=== PATIENT | male | born 1965 | race Caucasian/White ===

== ENCOUNTER 2022-05-15 12:17 | Outpatient (CLI) | payer MEDICAID, SELFPAY ==
[2022-05-15 12:50] LABS: Albumin* 4.4 g/dL (3.3-5.0); Chloride* 103 mmol/L (96-114)
[2022-05-15 12:51] LABS: Potassium* 4.4 mmol/L (3.6-5.1)
[2022-05-15 12:53] LABS: Alkaline Phosphatase* 66 U/L (40-150); Aspartate Amino Transferase* 25 U/L (12-35); Bilirubin Total* 0.4 mg/dL (0.1-1.5); Blood Urea Nitrogen* 16 mg/dL (7-30); Carbon Dioxide* 28 mmol/L (20-32); Cholesterol* 221 mg/dL (90-199); Creatinine* 0.8 mg/dL (0.5-1.5); Estimated Glomerular Filt Rate 103.22; Glucose* 105 mg/dL (60-115)
[2022-05-15 12:54] LABS: Alanine Aminotransferase* 19 U/L (4-50); Calcium* 9.1 mg/dL (8.4-10.6); HDL Cholesterol* 34 mg/dL (>=40)
[2022-05-15 13:02] LABS: LDL Cholesterol Calculated 55 mg/dL (<100); Triglycerides* 661 mg/dL (40-149)
[2022-05-15 13:24] LABS: PSA Screen* 1.03 ng/mL (0.10-4.00)
[2022-05-15 13:42] LABS: Sodium* 139 mmol/L (135-149)
== END 2022-05-15 12:18 | disposition home or self-care (01) ==
PROVIDERS: PCP Family Medicine; Visit Provider Family Medicine
DX: E78.5 Hyperlipidemia, unspecified (principal); Z12.5 Encounter for screening for malignant neoplasm of prostate
CPT/HCPCS: 80053; 80061; 84153

== ENCOUNTER 2022-06-03 20:57 | Outpatient (CLI) | payer MEDICAID, SELFPAY ==
--- NOTE | 2022-06-09 12:17 | W.PM.SLEEP ---
Sleep Study Details Details Interpreting Provider: Ace Casarez MD Date of Sleep Study: 06/03/22 Sleep Study Details: STUDY TYPE:? Hospital polysomnogram ? BMI:? 24.6 ORDERING PROVIDER:? Robert INDICATION:? Concerns about sleep apnea ? SLEEP SUMMARY:? Sleep time 3:32 a.m., efficiency 70.4, latency 60.5, arousal index 28.4. RESPIRATORY SUMMARY:? Mean oxygen awake 93 asleep 92 minimum 88, 0.2 minutes oxygen between 80 and 88%. AHI is 1.6, RDI 11.6, REM AHI 4.6. Supine AHI 1.8 supine RDI 15.3 supine REM AHI 6.9 Nonsupine AHI 1.3, nonsupine RDI 6.2 PERIODIC LIMB MOVEMENTS OF SLEEP:? 0 CARDIAC:? Awake 46, asleep 44. No arrhythmias noted IMPRESSION:? Mild obstructive sleep apnea with an RDI of 11.6. Overall AHI is within normal limits at 1.6. There was supine position dependency. RECOMMENDATION: When treatment options could consist of AutoSet CPAP, dental appliance and/or airway expansion surgery.
--- NOTE | 2022-06-16 12:50 | W.PM.SLEEP ---
Sleep Study Details Details Interpreting Provider: Ace Casarez MD Date of Sleep Study: 06/03/22 Sleep Study Details: STUDY TYPE:? Hospital polysomnogram ? BMI:? 24.6 ORDERING PROVIDER:? Robert INDICATION:? Concerns about sleep apnea ? SLEEP SUMMARY:? Sleep time 3:32 a.m., efficiency 70.4, latency 60.5. Arousal index 28 point RESPIRATORY SUMMARY:? Mean oxygen awake 93, asleep 92, low oxygen 88, 0.2 minutes oxygen between 80 and 88%. AHI 1.6, RDI 11.6 supine REM AHI 6.9 PERIODIC LIMB MOVEMENTS OF SLEEP:? None CARDIAC:? Awake 46 asleep 44. No arrhythmias noted IMPRESSION:? Mild obstructive sleep apnea. While the AHI is within normal limits at 1.6, the RDI is elevated to 11.6. This was worse in the supine position. There was also supine REM mild obstructive apnea with a supine REM AHI of 6.9 RECOMMENDATION: If the patient is symptomatic, could consider positional therapy, AutoSet CPAP at a pressure of 4-15, dental appliance and/or airway expansion surgery.
== END 2022-06-03 20:58 | disposition home or self-care (01) ==
LOC: SLEEP 20:58
PROVIDERS: PCP Family Medicine; Visit Provider Otolaryngology
DX: G47.33 Obstructive sleep apnea (adult) (pediatric) (principal)
CPT/HCPCS: 95810

== ENCOUNTER 2022-07-31 08:42 | Day surgery (SDC) | payer MEDICAID, SELFPAY ==
[2022-07-31] VITALS (15 sets, daily range): BP systolic 123–191; BP diastolic 77–101; PULSE 42–68; RESP 16; TEMP 36.1–36.6; O2SAT 95–100; BMI 23.8
[2022-07-31] MEDS: LACTATED RINGERS 1000 ML 1,000 ML 100 ML IV (09:15)
[2022-07-31] MEDS: SODIUM CHLORIDE 0.9 % (FLUSH) 10 ML SYRINGE IVF (09:18)
[2022-07-31] MEDS: ETHYL CHLORIDE 1 APPLICATION 1 APPLIC TOPICAL (09:18)
[2022-07-31] MEDS: OXYMETAZOLINE 0.05% NASAL SPRAY 2 SPRAY NOSTRIL-B (09:49)
[2022-07-31] MEDS: LACTATED RINGERS 1000 ML 1,000 ML 35 ML IV (10:00)
[2022-07-31] MEDS: COCAINE HCL 4 % 4 ML SOLUTION NOSTRIL-B (10:10)
[2022-07-31] MEDS: BUPIVACAINE 0.5%/EPINEPHRINE 0.9 MG (30.9 ML) INJECTION (10:15)
[2022-07-31] MEDS: AYR SALINE NASAL GEL 1 APPLIC NOSTRIL-B (10:25)
[2022-07-31] MEDS: MUPIROCIN 1 GM PACKET 1 APPLIC TOPICAL (10:36)
--- NOTE | 2022-07-31 10:54 | W.PM.ENTPROC ---
Procedure Note Date of procedure: 07/31/22 Procedure: Preoperative diagnosis large nasopharyngeal polyp, pansinusitis, mild nasal septal deviation, inferior turbinate hypertrophy, nasal obstruction Postoperative diagnosis same plus additional right nasal polyp at middle meatus new line procedure endoscopic bilateral nasal polypectomy with removal of large nasopharyngeal polyp on the left side and the right-sided smaller polyp., submucous partial resection inferior turbinates Under general endotracheal anesthesia patient was prepped and draped in usual fashion the nose injected and decongested. The McIvor mouth gag was inserted the tongue retracted forward. A red rubber catheter was placed in the right nostril and pulled out through the mouth to retract the palate. A large polyp with visible occluding essentially the entire nasopharynx. I was unable to easily reach it through the nasopharynx so I went in transnasally and relocated the septum to be midline with a nasal speculum. I was able improves the polyp down into the nasopharynx or could easily grasped with an up-biting ethmoid forceps on indirect visualization with a laryngeal mirror. The 0 degree endoscope was also available for use throughout the procedure. The polyp was removed in total. And sent to pathology. The remainder of the nose was inspected. The right polyp was noted in the middle meatus is about 1 cm in size this was also removed. A stab incision was made in the anterior head of the left inferior turbinate a tunnel created with a [place] dissector. A conservative anterior submucous resection was performed. The Coblation was used for hemostasis and to cauterize the inferior 10%. Dissolvable packing was trimmed and placed beneath the polyp biopsy sites on each side. The patient procedure well was taken recovery in satisfactory condition. Blood loss during procedure was less than 25 mL Surgeon: Ace Casarez MD
--- NOTE | 2022-07-31 11:01 | W.ANESCHARGE ---
Anesthesia Charges Start Date/Time Anesthesia Start Date: 07/31/22 Anesthesia Start Time: 09:58 Stop Date/Time Anesthesia Stop Date: 07/31/22 Anesthesia Stop Time: 11:05 Summary Emergency: No
--- NOTE | 2022-07-31 11:08 | W.ANESCHARGE ---
Anesthesia Charges Start Date/Time Anesthesia Start Date: 07/31/22 Anesthesia Start Time: 09:58 Stop Date/Time Anesthesia Stop Date: 07/31/22 Anesthesia Stop Time: 11:05 Summary Emergency: No
[2022-07-31] MEDS: fentaNYL 100 MCG/2 ML inj 50 MCG IVP ×2 (11:18→11:28)
--- NOTE | 2022-07-31 11:22 | SUR.PHASEI ---
ANESTHESIA AWARE OF PATIENTS INCREASED BLOOD PRESSURE ON PACU ADMISSION AND ONGOING INCREASED BLOOD PRESSURE AND LOW HEART RATE. GAVE PATIENT DOSE OF FENTANYL FOR PAIN OF A 4.
[2022-07-31] MEDS: IBUPROFEN 200 MG TABLET 400 MG PO (12:00)
[2022-07-31] MEDS: OXYCODONE 5 MG TABLET PO (12:20)
[2022-07-31] MEDS: HYDRALAZINE HCL 20 MG/ML inj 10 MG IVP (12:57)
--- NOTE | 2022-08-03 09:02 | SUR.PREOP ---
preop completed date time and RN name field completed by Blanca faulkner as need to be entered to close case for billing. RN made aware of need to do.
== END 2022-07-31 13:50 | disposition home or self-care (01) ==
PROVIDERS: PCP Family Medicine; Visit Provider Otolaryngology
PROC: (CPT 30520; principal; 2022-07-31 10:00)
DX: J33.0 Polyp of nasal cavity (principal); J34.3 Hypertrophy of nasal turbinates; J34.2 Deviated nasal septum; J32.4 Chronic pansinusitis; K13.79 Other lesions of oral mucosa
CPT/HCPCS: 31237; 30140; 42100; 160; 88302; 88304; A9270; J0330; J0360; J1100; J2250; J2405; J2704; J3010; J7120

== ENCOUNTER 2023-05-26 07:27 | Outpatient (CLI) | payer MEDICAID, SELFPAY | END 2023-05-26 07:28 | disposition home or self-care (01) | LOC: NFLDREF 05-27 07:27 | PROVIDERS: PCP Family Medicine; Referring Provider Family Medicine; Visit Provider Family Medicine | DX: Z00.00 Encounter for general adult medical examination without abnormal findings (principal); E78.5 Hyperlipidemia, unspecified; Z12.5 Encounter for screening for malignant neoplasm of prostate; Z13.9 Encounter for screening, unspecified | CPT/HCPCS: 80053; 80061; 84153 ==

== ENCOUNTER 2025-05-22 07:21 | Outpatient (CLI) | payer MEDICAID, SELFPAY | END 2025-05-22 07:22 | disposition home or self-care (01) | PROVIDERS: PCP Family Medicine; Visit Provider Family Medicine | DX: E78.5 Hyperlipidemia, unspecified (principal); Z80.42 Family history of malignant neoplasm of prostate; Z12.5 Encounter for screening for malignant neoplasm of prostate | CPT/HCPCS: 80053; 80061; G0103 ==

== ENCOUNTER 2025-08-13 07:06 | Outpatient (CLI) | payer OTHER, SELFPAY ==
--- NOTE | 2025-08-13 08:41 | P.ANES_ITS ---
Anesthesia Charges Start Date/Time Anesthesia Start Date: 08/13/25 Anesthesia Start Time: 08:05 Stop Date/Time Anesthesia Stop Date: 08/13/25 Anesthesia Stop Time: 08:38 Coding CPT Codes CPT Codes: JESSICA LWR INTST NDMS NOS - [id number] ([id number]) P1 - NORMAL HEALTHY PATIENT, QK - DOT ETCHER 2-4 CNCRNT ANES PROC, QX - NIGHT NURSE SVC W/ MED DIRECTION
--- NOTE | 2025-08-13 08:41 | W.ANESCHARGE ---
Anesthesia Charges Start Date/Time Anesthesia Start Date: 08/13/25 Anesthesia Start Time: 08:05 Stop Date/Time Anesthesia Stop Date: 08/13/25 Anesthesia Stop Time: 08:38 Coding CPT Codes CPT Codes: JESSICA LWR INTST NDVA NOS - [id number] ([id number]) P1 - NORMAL HEALTHY PATIENT, QK - PRESIDENT 2-4 CNCRNT ANES PROC, QX - MANAGEMENT ASSOCIATE SVC W/ MED DIRECTION
--- NOTE | 2025-08-13 10:23 | P.ANES_ITS ---
Anesthesia Charges Start Date/Time Anesthesia Start Date: 08/13/25 Anesthesia Start Time: 08:05 Stop Date/Time Anesthesia Stop Date: 08/13/25 Anesthesia Stop Time: 08:38 Coding CPT Codes CPT Codes: JESSICA LWR INTST NDGA NOS - [id number] ([id number]) P1 - NORMAL HEALTHY PATIENT, QK - MEN'S SWIM COACH 2-4 CNCRNT ANES PROC, QX - LOCAL INTERMODAL TRUCK DRIVER SVC W/ MED DIRECTION
--- NOTE | 2025-08-13 10:23 | W.ANESCHARGE ---
Anesthesia Charges Start Date/Time Anesthesia Start Date: 08/13/25 Anesthesia Start Time: 08:05 Stop Date/Time Anesthesia Stop Date: 08/13/25 Anesthesia Stop Time: 08:38 Coding CPT Codes CPT Codes: JESSICA LWR INTST NDLA NOS - [id number] ([id number]) P1 - NORMAL HEALTHY PATIENT, QK - MEDICAL SURGERY NURSE 2-4 CNCRNT ANES PROC, QX - GYPSUM ROOFER SVC W/ MED DIRECTION
== END 2025-08-13 07:07 | disposition home or self-care (01) ==
LOC: OP CLINIC 07:08
PROVIDERS: PCP Family Medicine; Visit Provider Surgery
DX: Z12.11 Encounter for screening for malignant neoplasm of colon (principal); D12.0 Benign neoplasm of cecum; D12.3 Benign neoplasm of transverse colon; D12.4 Benign neoplasm of descending colon; Z86.0100 Personal history of colon polyps, unspecified
CPT/HCPCS: 00811; 00812; 45385; J2704

== ENCOUNTER 2025-10-30 08:05 | Outpatient (CLI) | payer OTHER, SELFPAY | END 2025-10-30 08:06 | disposition home or self-care (01) | LOC: NFLDREF 11-03 18:28 | PROVIDERS: PCP Family Medicine; Referring Provider Family Medicine; Visit Provider Family Medicine | DX: E78.5 Hyperlipidemia, unspecified (principal) | CPT/HCPCS: 80061; 84450; 84460 ==